=== PATIENT | male | born 1955 | race Caucasian/White ===

== ENCOUNTER 2016-07-29 11:26 | Emergency (ER) | payer OTHER ==
[~2016-07-29] VITALS: Ht 185.4 cm; Wt 110.0 kg
[~2016-07-29 11:26] MED LIST: DICL75 PO; PRED20 PO; SULF1TAB47 PO; Z.0.NO CURRENT MEDS
[2016-07-29 11:32] VITALS: BP 147/92; PULSE 82; RESP 16; TEMP 97.4; O2SAT 98
[2016-07-29] MEDS ORDERED: BACT800T5 PO (11:54)
[2016-07-29] MEDS ORDERED: MUPI2OIN TOPICAL (11:54)
[2016-07-29] MEDS ORDERED: CEPH-460 PO (11:54)
--- NOTE | 2016-07-29 11:54 | PD ---
HPI Chief Complaint: Skin Problem Time Seen by Provider: 11:40 Travel History International Travel<30 days: No Contact w/Intl Traveler<30days: No Traveled to known affect area: No History of Present Illness HPI Patient is a 61-year-old male who presented to our for evaluation of right lower leg wound. Patient states that 10 days ago he was hit in the flower with a piece of metal, since that time he's been applying Neosporin to the wound as well as a dressing. Patient states despite that he continues to have redness, swelling and he states the wound continues to get larger. He denies any fever, chills, nausea, vomiting, chest pain or shortness of breath. Patient denies any calf pain or tenderness. He denies a significant past medical history but does not follow up routinely with a primary doctor. PFSH Past Medical History Medical History: Denies Significant Hx Hx Anticoagulant Therapy: No Diabetes: No Diminished Hearing: No Immunizations Current: Yes Tetanus Vaccination: > 5 Years Influenza Vaccination: No Past Surgical History Surgical History: No Previous Surgery Social History Alcohol Use: Yes ( 3 BEERS DAILY) Tobacco Use: Yes ( 1 pk) Substance Use: No Allergies-Medications (Allergen,Severity, Reaction): Coded Allergies: No Known Allergies (Verified , 07/29/16) Reported Meds & Prescriptions Reported Meds & Active Scripts Active No Active Prescriptions or Reported Medications Review of Systems Except as stated in HPI: all other systems reviewed are Neg Musculoskeletal: Positive: Edema Skin: Positive Change in Pigmentation, Positive Lesions Physical Exam Narrative GENERAL: Well-nourished, well-developed patient. SKIN: Warm and dry. 6 cm area of erythema to the right flower. HEAD: Normocephalic. EYES: No scleral icterus. No injection or drainage. NECK: Supple, trachea midline. No JVD or lymphadenopathy. CARDIOVASCULAR: Regular rate and rhythm without murmurs, gallops, or rubs. RESPIRATORY: Breath sounds equal bilaterally. No accessory muscle use. GASTROINTESTINAL: Abdomen soft, non-tender, nondistended. MUSCULOSKELETAL: No cyanosis, mild edema noted to the right lower leg, negative Homans sign, positive pedal pulses, brisk less than 3 second capillary refill. 5/5 muscle strength in bilateral lower extremities. BACK: Nontender without obvious deformity. No CVA tenderness. Data Data Last Documented VS Vital Signs Date Time Temp Pulse Resp B/P Pulse Ox O2 Delivery O2 Flow Rate FiO2 07/29/16 11:32 97.4 82 16 147/92 98 MDM Medical Decision Making Medical Screen Exam Complete: Yes Emergency Medical Condition: Yes Interpretation(s) Vital Signs Date Time Temp Pulse Resp B/P Pulse Ox O2 Delivery O2 Flow Rate FiO2 07/29/16 11:32 97.4 82 16 147/92 98 Differential Diagnosis Cellulitis versus contact dermatitis versus abscess versus other Narrative Course Patient is a 61-year-old male who presented to the emergency department evaluation of a skin wound that occurred 10 days ago. It is gotten progressively larger despite topical antibiotic therapy in proper wound care. 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 Patient is afebrile, his vital signs are stable. He does report a history of contact dermatitis. Patient is uncertain when his last tetanus vaccination was given. Tetanus vaccine updated in the emergency department today. They could be a component of that with surrounding erythema to the initial wound. However due to the duration of symptoms as well as physical examination, patient will be given an oral antibiotic. He was encouraged to return to emergency department if wound continued to get larger despite antibiotic therapy or if he had any new or worsening symptoms. Patient verbalized understanding of these instructions. Patient is stable for discharge. Diagnosis Primary Impression: Cellulitis Qualified Code: L03.115 - Cellulitis of right lower extremity Additional Impression: Tetanus toxoid vaccination administered at current visit Referrals: Primary Care Physician Patient Instructions: Cellulitis (ED), General Instructions Additional Instructions: Keep extremity elevated Apply topical antibiotic ointment and nonocclusive dressing. Wash twice daily with soap and water only. Follow-up with your primary doctor Return to emergency department for any new or worsening symptoms. Return to emergency department if wound continues to get larger despite antibiotic therapy. Med/Other Pt SpecificInfo: Prescription(s) given Scripts Mupirocin Topical 2 % Oint1 Applic TOPICAL BID #22 GM Ref 0 Prov:Tanna Mcdonough 07/29/16 Sulfamethoxazole-Trimethoprim (Bactrim DS)800-160 Mg Tab1 Tab PO BID #20 TAB Ref 0 Prov:Tanna Mcdonough 07/29/16 Cephalexin (Keflex)500 Mg [id number] Mg PO Q12H 10 Days Ref 0 Prov:Tanna Mcdonough 07/29/16 Disposition: 01 DISCHARGE HOME Condition: Stable CeasarTanna MCKEON Jul 29, 2016 11:54
[2016-07-29] MEDS ORDERED: TETANUS/DIPHTHERIA TOXOID ADULT 0.5 ML VIAL IM ONE (12:00)
== END 2016-07-29 12:09 | disposition home or self-care (01) ==
LOC: PHEFT 11:26
DX: L03.115 Cellulitis of right lower limb (principal); F17.210 Nicotine dependence, cigarettes, uncomplicated; Z23 Encounter for immunization; W22.8XXA Striking against or struck by other objects, initial encounter
CPT/HCPCS: 90471; 90714